=== PATIENT | male | born 1955 ===

== ENCOUNTER 2024-07-04 07:30 | Day surgery (SDC) | payer OTHER ==
[2024-07-01 08:34] VITALS: BP 140/83
[2024-07-01 09:18] LABS: PH,URINE 5.5 (5.0-8.0); URINE APPEARANCE Clear; URINE BACTERIA 7.3 uL (0.0-1933); URINE BILIRRUBIN Negative (NEGATIVE); URINE BLOOD Small; URINE COLOR Yellow; URINE GLUCOSE Negative (NEGATIVE); URINE KETONE Negative (NEGATIVE); URINE LEUKOCYTE Negative; URINE NITRATE Negative; URINE PROTEIN Negative (NEGATIVE); URINE RBC 2.9 uL (0.0-20.8); URINE UROBILINOGEN 0.2 E.U./dl
[2024-07-01 09:18] LABS: HEMATOCRIT 45.6 % (39.0-48.0); HEMOGLOBIN 15.1 g/dL (13-16.00); MEAN CELL VOLUME 88.1 fL (80.0-100.00); MEAN CORPUSCULAR HEMOGLOBIN 29.3 pg (27.00-32.0); MEAN CORPUSCULAR HGB CONC 33.2 g/dl (32.0-36.0); PLATELET COUNT 137 K/uL (150-450); RED BLOOD COUNT 5.17 M/uL (4.00-6.00); RED CELL DISTRIBUTION WIDTH 13.8 % (11.5-14.5)
[2024-07-01 09:20] LABS: URINE CAST 0.14 uL (0.0-1.40); URINE EPITHELIAL CELLS 0.9 uL (0.0-38.8); URINE WBC 1.7 uL (0.0-23.2)
[2024-07-01 09:39] LABS: INR 1.05; PARTIAL THROMBOPLASTIN TIME 25.9 SECONDS (22.0-34.0); PROTHROMBIN TIME 11.4 SECONDS (9.0-11.5)
[2024-07-01 10:58] LABS: ALBUMIN 4.4 gm/dL (3.4-5.0); BILIRUBIN TOTAL 0.79 mg/dL (0.3-1.2); CALCIUM 9.4 mg/dL (8.5-10.1); GFR 74.09; GLOBULINA 3.3 G/DL (2.4-3.5); POTASSIUM 4.27 mEq/L (3.5-5.1); TOTAL PROTEIN 7.7 gm/dL (6.4-8.2)
[~2024-07-04] VITALS: Ht 180.3 cm; Wt 98.9 kg
[2024-07-04] MEDS ORDERED: BUPIVACAINE HCL/MPF 0.5% 30ML VIAL ONE (11:02)
[2024-07-04] MEDS ORDERED: SUGAMMADEX SODIUM 200 MG/2 ML VIAL IV ONE (12:31)
[2024-07-04] MEDS ORDERED: KETOROLAC TROMETHAMINE 30 MG VIAL ONE (12:32)
[2024-07-04] MEDS ORDERED: CEFAZOLIN SODIUM 1,000 MG VIAL IV ONE (14:15)
== END 2024-07-04 16:10 | disposition home or self-care (01) ==
LOC: CIR.AMB 07:30
PROVIDERS: ATTEND Orthopaedic Surgery
DX: S46.312A Strain of muscle, fascia and tendon of triceps, left arm, initial encounter (principal); S46.322A Laceration of muscle, fascia and tendon of triceps, left arm, initial encounter